=== PATIENT | female | born 1985 | race African-American/Black ===

== ENCOUNTER 2020-07-01 19:41 | Emergency (ER) | payer OTHER ==
[~2020-07-01] VITALS: Ht 160 cm; Wt 92.5 kg
[2020-07-01 19:42] VITALS: BP 133/74
[2020-07-01] MEDS ORDERED: ONDANSETRON 4MG/2ML VIAL IV ONE (20:15)
[2020-07-01] MEDS ORDERED: NS 1,000 ML IV ONE (20:15)
[2020-07-01] MEDS ORDERED: KETOROLAC 30 MG/ML 1ML VIAL IV ONE (20:15)
[2020-07-01 20:42] LABS: BASO % 0.5 % (0.0-1.0); EOS # 0.1 10^3/uL (0.0-0.5); EOS % 1.3 % (0.0-3.0); HEMATOCRIT 37.5 % (36.0-47.0); HEMOGLOBIN 12.3 g/dl (12.0-15.5); LYMPH # 2.9 10^3/uL (1.5-5.0); LYMPH % 34.1 % (24.0-44.0); MEAN CORPUSCULAR HEMOGLOBIN 29.7 pg (27.0-33.0); MEAN CORPUSCULAR HGB CONC 32.8 g/dl (32.0-36.5); MEAN CORPUSCULAR VOLUME 90.6 fl (80.0-96.0); MONO # 0.6 10^3/uL (0.0-0.8); MONO % 7.1 % (0.0-5.0); NEUTROPHILS # 4.8 10^3/uL (1.5-8.5); NEUTROPHILS % 56.8 % (36.0-66.0); PLATELET COUNT, AUTOMATED 260 10^3/uL (150-450); RED BLOOD COUNT 4.14 10^6/uL (4.00-5.40); WHITE BLOOD COUNT 8.4 10^3/uL (4.0-10.0)
[2020-07-01 21:02] LABS: ALBUMIN 3.7 GM/DL (3.2-5.2); ALT/SGPT 23 U/L (12-78); BILIRUBIN,DIRECT < 0.1 MG/DL (0.0-0.2); BILIRUBIN,TOTAL 0.2 MG/DL (0.2-1.0); BLOOD UREA NITROGEN 12 MG/DL (7-18); CALCIUM LEVEL 8.9 MG/DL (8.5-10.1); CARBON DIOXIDE LEVEL 30 MEQ/L (21-32); CHLORIDE LEVEL 106 MEQ/L (98-107); CREATININE FOR GFR 0.96 MG/DL (0.55-1.30); GLOMERULAR FILTRATION RATE > 60.0 (>60); GLUCOSE, FASTING 80 MG/DL (70-100); LIPASE 252 U/L (73-393); POTASSIUM SERUM 3.6 MEQ/L (3.5-5.1); SODIUM LEVEL 141 MEQ/L (136-145); TOTAL PROTEIN 7.6 GM/DL (6.4-8.2)
--- NOTE | 2020-07-01 22:18 | REPVR ---
PROCEDURE INFORMATION: Exam: CT Abdomen And Pelvis Without Contrast Exam date and time: 07/01/2020 10:03 PM Age: 35 years old Clinical indication: Abdominal pain; Localized; Left; Additional info: Left flank pain; R/O stone TECHNIQUE: Imaging protocol: Computed tomography of the abdomen and pelvis without contrast. Radiation optimization: All CT scans at this facility use at least one of these dose optimization techniques: automated exposure control; mA and/or kV adjustment per patient size (includes targeted exams where dose is matched to clinical indication); or iterative reconstruction. COMPARISON: No relevant prior studies available. FINDINGS: Liver: Normal. No mass. Gallbladder and bile ducts: The gallbladder is incompletely distended. This is most likely related to incomplete fasting. Clinical correlation to exclude gallbladder pathology suggested. Pancreas: Normal. No ductal dilation. Spleen: Normal. No splenomegaly. Adrenal glands: Normal. No mass. Kidneys and ureters: Normal. No hydronephrosis. Stomach and bowel: There is increased feces throughout the colon consistent with constipation. Appendix: No evidence of appendicitis. Intraperitoneal space: Unremarkable. No free air. No significant fluid collection. Vasculature: Unremarkable. No abdominal aortic aneurysm. Lymph nodes: Unremarkable. No enlarged lymph nodes. Urinary bladder: Unremarkable as visualized. Reproductive: Unremarkable as visualized. Bones/joints: Unremarkable. No acute fracture. Soft tissues: There is a small umbilical hernia. There is no evidence of incarceration. IMPRESSION: 1. The gallbladder is incompletely distended. This is most likely related to incomplete fasting. Clinical correlation to exclude gallbladder pathology suggested. 2. There is increased feces throughout the colon consistent with constipation. Electronically signed by: Ok Biswas On 07/01/2020 22:19:12 PM
[2020-07-01] MEDS ORDERED: KETO10TAB PO (22:37)
[2020-07-01] MEDS ORDERED: MACR100C43 PO (22:37)
== END 2020-07-01 23:18 | disposition home or self-care (01) ==
LOC: M ED 19:41
DX: N39.0 Urinary tract infection, site not specified (principal); R11.10 Vomiting, unspecified
CPT/HCPCS: 74176; 80048; 80076; 81001; 83690; 84702; 85025; 87088; 87186; 96361; 96374; 96375; 99283; J1885; J2405

== ENCOUNTER 2020-07-26 11:04 | Inpatient (IN) | payer OTHER ==
[~2020-07-26] VITALS: Ht 160 cm; Wt 91.0 kg
[~2020-07-26 11:04] MED LIST: KETO10TAB PO; MACR100C43 PO
[2020-07-26] MEDS ORDERED: TRAZ-257 PO (11:21)
[2020-07-26] MEDS ORDERED: DULO1CAP6 PO (11:21)
[2020-07-26] MEDS ORDERED: PRAZ2CAP (11:21)
[2020-07-26] MEDS ORDERED: CELE1CAP9 PO (11:21)
[2020-07-26 12:27] LABS: HEMATOCRIT 40.7 % (36.0-47.0); HEMOGLOBIN 12.9 g/dl (12.0-15.5); MEAN CORPUSCULAR HEMOGLOBIN 29.1 pg (27.0-33.0); MEAN CORPUSCULAR HGB CONC 31.7 g/dl (32.0-36.5); MEAN CORPUSCULAR VOLUME 91.9 fl (80.0-96.0); PLATELET COUNT, AUTOMATED 304 10^3/uL (150-450); RED BLOOD COUNT 4.43 10^6/uL (4.00-5.40); WHITE BLOOD COUNT 9.2 10^3/uL (4.0-10.0)
[2020-07-26 12:47] LABS: AMPHETAMINES LEVEL URINE NEGATIVE (NEGATIVE); BARBITURATES URINE NEGATIVE (NEGATIVE); BENZODIAZEPINES URINE NEGATIVE (NEGATIVE); CANNABINOIDS URINE NEGATIVE (NEGATIVE); COCAINE METABOLITE URINE NEGATIVE (NEGATIVE); METHADONE URINE NEGATIVE (NEGATIVE); OPIATES URINE NEGATIVE (NEGATIVE); PHENCYCLIDINE URINE NEGATIVE (NEGATIVE)
[2020-07-26 12:49] LABS: HCG, SERUM QUALITATIVE NEGATIVE (NEGATIVE)
[2020-07-26 12:59] LABS: ALBUMIN 3.9 GM/DL (3.2-5.2); ALT/SGPT 20 U/L (12-78); BILIRUBIN,DIRECT < 0.1 MG/DL (0.0-0.2); BILIRUBIN,TOTAL 0.2 MG/DL (0.2-1.0); BLOOD UREA NITROGEN 8 MG/DL (7-18); CARBON DIOXIDE LEVEL 29 MEQ/L (21-32); CHLORIDE LEVEL 107 MEQ/L (98-107); CREATININE FOR GFR 0.89 MG/DL (0.55-1.30); ETHYL ALCOHOL (ETHANOL) < 0.003 % (0.000-0.010); GLOMERULAR FILTRATION RATE > 60.0 (>60); GLUCOSE, FASTING 92 MG/DL (70-100); POTASSIUM SERUM 3.7 MEQ/L (3.5-5.1); SALICYLATE LEVEL < 1.7 MG/DL (5.0-30.0); SODIUM LEVEL 142 MEQ/L (136-145); THYROID STIMULATING HORMONE 0.624 uIU/ML (0.358-3.740); TOTAL PROTEIN 7.7 GM/DL (6.4-8.2)
[2020-07-26 13:00] LABS: ACETAMINOPHEN LEVEL < 2.0 UG/ML (10.0-30.0)
[2020-07-26] MEDS ORDERED: MOM 30ML SUSPENSION UDC PO PRN (16:15)
[2020-07-26] MEDS ORDERED: OLANZapine ORAL DISINTEGRATING TAB 5MG PO PRN (16:15)
[2020-07-26] MEDS ORDERED: traZODone 100 MG TAB PO PRN (16:15)
[2020-07-26] MEDS ORDERED: CelecoXIB (CeleBREX) 100 MG CAP PO PRN (16:15)
[2020-07-26] MEDS ORDERED: MAALOX 30 ML SUSP *UDC PO PRN (16:15)
[2020-07-26] MEDS ORDERED: ACETAMINOPHEN TAB 650MG DOSE (2X325MG) PO PRN (16:15)
[2020-07-26] MEDS: DULoxetine 30 MG CAP (CYMBALTA) PO SCH (21:00)
[2020-07-27 06:33] VITALS: BP 101/55
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
[2020-07-27] MEDS: DULoxetine 30 MG CAP (CYMBALTA) PO SCH (21:00)
[2020-07-27] MEDS: ARIPiprazole 2 MG TAB PO SCH (21:00)
[2020-07-28 06:35] VITALS: BP 110/55
--- NOTE | 2020-07-28 12:15 | ECGEPIP ---
[facility] - ED Test Date: 2020-07-26 Pat Name: NIELS BROCK Department: Room: [facility] Gender: Female Systems Integrator: JUAN ANTONIO : 1985 Requested By: LARRY IBARRA Order Number: [id number] Reading MD: Adriana Gonzalez Measurements Intervals [place] Rate: 57 P: -18 SD: 147 QRS: -3 QRSD: 93 T: 6 QT: 425 QTc: 417 Interpretive Statements SINUS BRADYCARDIA WITH SINUS ARRHYTHMIA NO PRIOR Electronically Signed on 07-28-2020 12:15:14 EST by Adriana Gonzalez
--- NOTE | 2020-07-28 13:16 | MHIPNPDOC ---
[facility] Progress Note Progress Note DATE OF SERVICE: 07/28/20 HISTORY: The patient is met with today, she reports she doesn't want take medications, she reports she has depression but denies any suicidality. She is been minimally involved in unit but has had no behavioral problems. She continues to ask wanting to go and feels that on this environment she has one take medications as her deprives of her hospital control. She otherwise has no complaints and is primarily interested in going home.. VITAL SIGNS: See below. NEW TEST RESULTS: UTI detected on urine screen. CURRENT MEDICATIONS: See below. MENTAL STATUS EXAMINATION: General: [Well dressed with good hygiene] Speech: [Spontaneous and fluid] Thought processes: [Linear and logical] Thought content: Guarded Abstract reasoning, and computation: [Intact] Description of associations: [Intact] Description of abnormal or psychotic thoughts:[Denies any suicidal or homicidal ideation. Denies any auditory or visual hallucinations. Does not appear to be responding to internal stimuli. Does not appear to be endorsing any bizarre or paranoid ideation.] Judgment: Limited Insight: Limited Orientation: [Alert and orientated 3] Recent and remote memory: [Intact] Attention span and concentration: [Intact] Fund of knowledge: [Adequate] Mood: "Fine" Affect: Mildly flat DIAGNOSES: 1. PTSD, chronic. ASSESSMENT: The plan is the patient will be continued be offered medications, I'm ambivalent about discharge as information will need be gleaned from [facility] as to whether a discharge to be appropriate, she is quite guarded and interacts very little. Her insight is not ideal and I would prefer to have full collateral information although pending this generally being good discharge could happen tomorrow. MANAGEMENT PLAN: Continue to offer Cymbalta and Abilify, start Bactrim 400 mg twice a day for UTI will need to continue to 10-14 days. TIME SPENT: 15 minutes. Vital Signs Vital Signs Date Time Temp Pulse Resp B/P (MAP) Pulse Ox O2 Delivery O2 Flow Rate FiO2 07/28/20 06:35 97.8 74 16 110/55 (73) 100 Room Air Current Medications Current Medications Medications (Trade) Dose Ordered Sig/Abhilash Route PRN Reason Start Time Stop Time Status Last Admin Dose Admin Acetaminophen (Tylenol Tab) 650 mg Q6HP PRN PO HEADACHE or DISCOMFORT 07/26/20 16:15 Al Hydrox/Mg Hydrox/Simethicone (Mylanta) 30 ml Q4HP PRN PO HEARTBURN/INDIGESTION 07/26/20 16:15 Aripiprazole (AbiLIFY) 2 mg QHS PO 07/27/20 21:00 Celecoxib (CeleBREX) 200 mg DAILYPRN PRN PO PAIN 07/26/20 16:15 Duloxetine HCl (Cymbalta) 60 mg QHS PO 07/26/20 21:00 Home Med (Med Rec Complete!) ASDIRECTED XX 07/26/20 15:45 07/26/20 15:35 DC Magnesium Hydroxide (Milk Of Magnesia) 30 ml DAILYPRN PRN PO CONSTIPATION 07/26/20 16:15 Olanzapine (ZyPREXA ZYDIS) 5 mg Q4HP PRN PO AGITATION 07/26/20 16:15 Trazodone HCl (Desyrel) 100 mg QHS PRN PO SLEEP 07/26/20 16:15 Allergies Coded Allergies: No Known Allergies (Unverified , 07/01/20) AISHA ROCK DO Jul 28, 2020 13:16
[2020-07-28 16:55] LABS: APPEARANCE, URINE CLOUDY (CLEAR); BACTERIA, URINE AUTO 3+ (NEGATIVE); BILIRUBIN, URINE AUTO NEGATIVE (NEGATIVE); BLOOD, URINE BLOOD 2+ (NEGATIVE); COLOR, URINE YELLOW (YELLOW); GLUCOSE, URINE (UA) AUTO NEGATIVE (NEGATIVE); KETONE, URINE AUTO NEGATIVE (NEGATIVE); LEUKOCYTE ESTERASE, URINE AUTO TRACE (NEGATIVE); MUCUS, URINE SMALL (NEGATIVE); NITRITE, URINE AUTO POSITIVE (NEGATIVE); PROTEIN, URINE AUTO NEGATIVE (NEGATIVE); RBC, URINE AUTO 0 /HPF (0-3); SPECIFIC GRAVITY URINE AUTO 1.025 (1.002-1.035); SQUAMOUS EPITHELIAL CELL UR AU 35 /HPF (0-6); WBC, URINE AUTO 13 /HPF (0-3)
[2020-07-28 19:48] VITALS: BP 140/85
[2020-07-28] MEDS: ARIPiprazole 2 MG TAB PO SCH (20:41)
[2020-07-28] MEDS: DULoxetine 30 MG CAP (CYMBALTA) PO SCH (20:42)
[2020-07-28] MEDS: BACTRIM 80MG/400MG TAB PO SCH (21:21)
[2020-07-29 06:21] VITALS: BP 117/59
[2020-07-29] MEDS: BACTRIM 80MG/400MG TAB PO SCH ×2 (09:26→20:33)
--- NOTE | 2020-07-29 10:00 | MHDSPDOC ---
[facility] Discharge Summary Discharge Summary DATE OF ADMISSION: Jul 26, 2020 at 16:10 DATE OF DISCHARGE: DISCHARGE DIAGNOSES: 1. . 2. . REASON FOR ADMISSION: CONSULTANTS INVOLVED: TREATMENT AND PROGRESS ON THE UNIT : . HOSPITAL COURSE: DISCHARGE ASSESSMENT: MENTAL STATUS EXAMINATION ON DISCHARGE: Patient is a -year old female, who is . Speech is . Language skills are . Thought processes including: . Thought content: . Abstract reasoning, and computation: . Description of associations: . Description of abnormal or psychotic thoughts: . Judgment: . Insight: . Orientation to . Recent and remote memory: . Attention span and concentration: . Language: . Fund of knowledge: . Mood: . Affect: . MEDICATIONS ON DISCHARGE: - for . - for . - for . PLAN/FOLLOWUP ARRANGEMENTS: . The amount of time spent in the coordination of care for this patient was approximately minutes. Vital Signs/I&Os Vital Signs Date Time Temp Pulse Resp B/P (MAP) Pulse Ox O2 Delivery O2 Flow Rate FiO2 07/29/20 06:21 97.2 77 12 117/59 (78) Room Air 07/28/20 06:35 100 Laboratory Data Labs 24H Laboratory Tests 2 07/28/20 13:45: Urine Color YELLOW, Urine Appearance CLOUDYH, Urine pH 6.0, Urine Specific [place] 1.025, Urine Protein NEGATIVE, Urine Glucose (Auto)(UA) NEGATIVE, Urine Ketones (Auto) NEGATIVE, Urine Blood 2+H, Urine Nitrite POSITIVE, Urine Bilirubin NEGATIVE, Urine Urobilinogen 2.0H, Urine Leukocyte Esterase (Auto) TRACEH, Urine WBC (Auto) 13H, Urine RBC (Auto) 0, Urine Hyaline Casts (Auto) 0, Urine Bacteria (Auto) 3+H, Urine Squamous Epithelial Cells 35, Urine Mucus (Auto) SMALL, Urine Sperm (Auto) Microbiology Microbiology 07/28/20 Urine Culture, Received Pending Medications Scheduled Duloxetine Hcl (Duloxetine HCl) 60 Mg Capsule.dr, 60 MG PO QHS, (Reported) Scheduled PRN Celecoxib (Celecoxib) 200 Mg Capsule, 200 MG PO DAILY PRN for PAIN, (Reported) Trazodone HCl (Trazodone HCl) 100 Mg Tablet, 100 MG PO QHS PRN for SLEEP, (Reported) Allergies Coded Allergies: No Known Allergies (Unverified , 07/01/20) AISHA ROCK DO Jul 29, 2020 10:00
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
[2020-07-29 16:00] VITALS: BP 128/83
[2020-07-29] MEDS: ARIPiprazole 2 MG TAB PO SCH (20:33)
[2020-07-29] MEDS: DULoxetine 30 MG CAP (CYMBALTA) PO SCH (20:34)
[2020-07-30 06:22] VITALS: BP 98/52
[2020-07-30] MEDS: BACTRIM 80MG/400MG TAB PO SCH (09:11)
--- NOTE | 2020-07-30 10:31 | MHDSPDOC ---
[facility] Discharge Summary Discharge Summary DATE OF ADMISSION: Jul 26, 2020 at 16:10 DATE OF DISCHARGE:Jul 30, 2020 at 11:42 DISCHARGE DIAGNOSES: PTSD, chronic MDD, recurrent, unspecified CONSULTANTS INVOLVED:[ None (basic hospitalist screening)] REASON FOR ADMISSION & TREATMENT AND PROGRESS ON THE UNIT : The patient was admitted to the inpatient mental health unit resumed on Cymbalta 60 mg daily, she did not take this medication and there was an attempted augme ntation with Abilify which she also declined, she generally did well although she did not demonstrate the most improved insight into her situation she reported that she did not want to take medication as she want to try it at home feeling the environment here was not supportive, she was observed over the weekend where she did not have any suicidal ideation or aggressive behavior, w hen collateral formation was gained on the following Wednesday, it was certainly concerning and I elected to have the patient stay over another night in order to get for treatment behavioral health time to offer the patient voluntary long- term of which she declined and to arrange for safe discharge as she generally did not demonstrate the most ideal insight into the situation. She generally was quite guarded and did not want to discuss much at length. The patient denied any suicidal or homicidal ideation through her stay and generally engaged but was upset about being retained but was not overtly aggressive. DISCHARGE ASSESSMENT[improved] Legal status considerations: The patient at the time of discharge did not meet criteria for involuntary admission/extension due to having a fair mental status exam, what I believed to be baseline insight into the situation, They are engaged in the discharge process, as well as being friendly and amenable in behavioral control and havent been engaging in any observed concerning behavior or ideation recently. They decline voluntary extension/admission at this time and must be discharged in good mindi, as Im unable to make a case for holding the patient against their will. They may have historical risk factors of admissions and other interactions with psychiatry however, those are not modifiable from a clinical perspective. The patient will need to be discharged in good mindi. MENTAL STATUS EXAMINATION ON DISCHARGE: The patient was attempted to be met with, however she had left before a formal exam could be undertaken, however she was observed throughout the day where she was gregarious and talkative, and the following aspects could be deduced from her the [id number] observation prior to her discharge as well as the nursing notes General: [Well dressed with good hygiene] Speech: [Spontaneous and fluid] Thought processes: [Linear and logical] Thought content: [Future orientated]-happy to go home Abstract reasoning, and computation: [Intact] Description of associations: [Intact] Description of abnormal or psychotic thoughts:[Denies any suicidal or homicidal ideation. Denies any auditory or visual hallucinations. Does not appear to be responding to internal stimuli. Does not appear to be endorsing any bizarre or paranoid ideation.] Judgment: Limited, appears to be at baseline Insight: Limited, appears to be at baseline Orientation: [Alert and orientated 3] Recent and remote memory: [Intact] Attention span and concentration: [Intact] Affect: [Euthymic with a full range] PLAN/FOLLOWUP ARRANGEMENTS: Follow up appointments made (PCP and MH in 5 days of D/C date) and safety plan completed. Safety Planning aspects completed prior to discharge [Medication supplies limited to 7 days with 4 refills to prevent accumulation to OD] [Family contact completed, educated on safe practices, instructed on removal and mitigation of dangerous means] [RN reviewed crisis hotline information and other aspects to empower patient to access care in interim before next appointment.] The amount of time spent in the coordination of care for this patient was approximately 30 minutes. Vital Signs/I&Os Vital Signs Date Time Temp Pulse Resp B/P (MAP) Pulse Ox O2 Delivery O2 Flow Rate FiO2 07/30/20 06:22 97.0 72 16 98/52 (67) 97 Room Air Laboratory Data Microbiology Microbiology 07/28/20 Urine Culture - Final, Complete Escherichia Coli Medications Scheduled Aripiprazole (Abilify) 2 Mg Tablet, 2 MG PO QHS for mood for 7 Days, #7 Duloxetine Hcl (Duloxetine HCl) 60 Mg Capsule.dr, 60 MG PO QHS for mood for 7 Days, #7 Sulfamethoxazole/Trimethoprim (Sulfamethoxazole-Tmp Ss Tablet) 1 Each Tablet, 1 EA PO BID for uti for 7 Days, #14 Scheduled PRN Celecoxib (Celecoxib) 200 Mg Capsule, 200 MG PO DAILY PRN for PAIN for 7 Days, #7 Trazodone HCl (Trazodone HCl) 100 Mg Tablet, 100 MG PO QHS PRN for SLEEP for 7 Days, #7 Allergies Coded Allergies: No Known Allergies (Unverified , 07/01/20) AISHA ROCK DO Jul 30, 2020 10:31
[2020-07-30] MEDS ORDERED: TRAZ-257 PO (10:37)
[2020-07-30] MEDS ORDERED: CELE1CAP9 PO (10:37)
[2020-07-30] MEDS ORDERED: DULO1CAP6 PO (10:37)
[2020-07-30] MEDS ORDERED: SULF400T14 PO (10:37)
[2020-07-30] MEDS ORDERED: ABIL1TAB13 PO (10:37)
== END 2020-07-30 11:42 | disposition home or self-care (01) | DRG 885 ==
LOC: M ED 11:04 → M ED INP 16:10 → M PSY 18:52
PROVIDERS: ADMIT Psychiatry & Neurology Addiction Medicine; ATTEND Psychiatry & Neurology Addiction Medicine
DX: F33.9 Major depressive disorder, recurrent, unspecified (principal); Z79.899 Other long term (current) drug therapy